=== PATIENT | female | born 1965 | race Two or more races ===

== ENCOUNTER → 2019-10-07 | Outpatient (CLI) | payer BC ==
--- NOTE | 2019-10-07 16:50 | CT ---
EXAMINATION TYPE: CT abdomen pelvis wo con DATE OF EXAM: 10/07/2019 COMPARISON: 05/28/2011 HISTORY: Right flank pain CT DLP: 1021 mGycm Examination of the solid and hollow viscera is limited given the lack of contrast. FINDINGS: LUNG BASES: No evidence for infiltrate. Hyperdense mediastinal and hilar lymph nodes are again noted . Stable subpleural nodule left lower lobe measuring 5 mm image 7 is unchanged. LIVER/GB: The gallbladder surgically absent. There is evidence of hepatic steatosis. No space-occupyi ng hepatic lesion. PANCREAS: No pancreatic mass identified. No inflammatory process seen. SPLEEN: No evidence for splenomegaly. No intrasplenic lesions seen. ADRENALS: No adrenal nodules identified. No evidence for thickening. KIDNEYS: No evidence for renal mass. No nephrolithiasis. No hydronephrosis. BOWEL: Appendix has a normal appearance. No evidence of bowel obstruction. No inflammatory process. Lymph nodes: Hyperdense lymph nodes are seen within the periportal region and gastrohepatic ligament regions. No evidence for adenopathy greater than 1 cm. Abdominal aorta: Atheromatous changes seen. No evidence for aneurysm. Genital organs: IUD is in place. Other: No significant abnormality. IMPRESSION: 1. Fatty liver. 2. Hyperdense mediastinal, hilar and abdominal lymph nodes.
== END | disposition home or self-care (01) ==
LOC: RADCTMAIN 08:17
PROVIDERS: ATTEND Internal Medicine
DX: K76.0 Fatty (change of) liver, not elsewhere classified (principal); R59.9 Enlarged lymph nodes, unspecified
CPT/HCPCS: 74176

== ENCOUNTER → 2023-09-29 | Outpatient (CLI) | payer BC ==
--- NOTE | 2023-09-29 13:59 | US ---
EXAMINATION TYPE: US thyroid st tissue head/neck DATE OF EXAM: 09/29/2023 COMPARISON: 03/02/2013 CLINICAL INDICATION: Female, 57 years old with history of R22.1 LOCALIZED SWELLING, MASS AND LUMP, NE CK; hx of right neck/supraclavicular masses/lesions with surgical removal, last was > few years. Pal pable noticed few months ago and can be tender. TECHNIQUE: Sonographic images taken of the neck and supraclavicular region. FINDINGS: Patients area of concern scanned at right supraclavicular region with 3 complex nonvascula r lesions seen. 1- 2.9 x 4.0 x 1.7 cm with moving internal echoes 2- 2.3 x 1.6 x 1.5 cm 3- 1.0 x 1.3 x 0.8 cm IMPRESSION: Multiple enlarged lesions some appear to represent lymph nodes while others have a cystic appearance. When comparing to prior CT in 2013 seems somewhat similar given differences in modality/ technique. Consider follow-up CT neck chest to compare to prior in 2013 with IV contrast.
== END | disposition home or self-care (01) ==
LOC: RADUSWWP 12:51
PROVIDERS: ATTEND Surgery
DX: R22.1 Localized swelling, mass and lump, neck (principal)
CPT/HCPCS: 76536

== ENCOUNTER → 2023-10-11 | Outpatient (CLI) | payer BC ==
--- NOTE | 2023-10-11 14:51 | CT ---
EXAMINATION TYPE: CT soft tissue neck w con DATE OF EXAM: 10/11/2023 1:48 PM COMPARISON: 03/02/2013 HISTORY: swelling mass lump on neck CT DLP: 398 mGycm Automated exposure control for dose reduction was used. CONTRAST: CT scan of the neck is performed following with IV Contrast, patient injected with 100 mL of Isovue 3 00. Axial images are obtained, coronal and sagittal reformatted images are reviewed. FINDINGS: There is a large 3.8 cm subcarinal lymph node with calcifications unchanged compared to previous. The re is a 4 cm right axillary lymph node which has increased significantly in the interval since the pr ior study. Previously it measured approximately 1.8 cm. There is a mass or consolidative infiltrate in the right lung apex which has increased significantly compared to the prior study. There is a right supraclavicular lymph node which is increased in size from 2.6 cm to 3.5 cm. There i s a new adjacent 2 cm right supraclavicular lymph node. There is a new 2.4 cm enlarged lymph node in the right jugular chain with peripheral calcification. There are multiple scattered nonenlarged calcified lymph nodes which were seen previously and have de creased in size in both jugular chains and in the anterior cervical regions bilaterally. The thyroid gland is normal and symmetric without enlargement or focal abnormality. The larynx including the cricoid, arytenoid, thyroid cartilages as well as the vocal cords are normal and symmetric. The tongue base, epiglottis, area epiglottic folds, piriform sinuses and vallecula are normal symmetr ic. There is no pharyngeal or parapharyngeal soft tissue mass or enhancement. 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 The right subgaleal gland is not enlarged. The parotid glands are normal and symmetric. The skull base is unremarkable. Intraorbital contents appear normal and symmetric. IMPRESSION: 1. Right upper lobe consolidative density/mass increase compared to the prior study from 2012. 2. increasing and adenopathy in the right axillary region, supraclavicular region and right jugular chain. 3. Stable subcarinal lymph node compared to previous. 4. multiple small calcified masses most of which have decreased in size in the region of the jugular chains and cervical regions bilaterally. 5. 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
== END | disposition home or self-care (01) ==
LOC: RADCTMAIN 12:46
PROVIDERS: ATTEND Surgery
DX: J98.4 Other disorders of lung (principal); R22.1 Localized swelling, mass and lump, neck
CPT/HCPCS: 70491; Q9967

== ENCOUNTER 2023-11-08 08:29 | Day surgery (SDC) | payer BC ==
[2023-11-08 11:09] VITALS: BP 124/68; PULSE 74; RESP 18; TEMP 98.1
--- NOTE | 2023-11-08 12:02 | US ---
ULTRASOUND GUIDED CORE BIOPSY RIGHT AXILLARY LYMPH NODE: CLINICAL HISTORY: Right neck lymph node FINDINGS: The procedure was explained to the patient. The risks, complications, benefits and alternatives were discussed and any questions were answered. Informed consent was obtained. Patient was placed supin e on the ultrasound table and prepped and draped in the usual sterile fashion. Utilizing a 18 gauge needle, four passes were made into the 4 cm and 2.3 cm lymph node right neck. Note is made that the l argest lymph node was almost completely fluid which will limit the diagnostic yield. A smaller lymph node also appeared to demonstrate a significant portion which appear to be liquid echogenicity. This may also limit diagnostic view. Patient was stable throughout the procedure. Pathology is pending. All elements of maximal barrier and sterile technique were utilized. IMPRESSION: 1. Successful ultrasound guided core biopsy right neck lymphadenopathy.
== END 2023-11-08 10:40 | disposition home or self-care (01) ==
LOC: RADPROMAIN 08:29
PROVIDERS: ATTEND Surgery
DX: L92.9 Granulomatous disorder of the skin and subcutaneous tissue, unspecified (principal); E88.2 Lipomatosis, not elsewhere classified
CPT/HCPCS: 21550; 38505; 76942; 88305; 88312; 88342